=== PATIENT | female | born 1980 | race Caucasian/White ===

== ENCOUNTER 2023-04-03 11:06 | Outpatient (RCR) | payer BC, SELFPAY | END 2023-08-01 23:59 | disposition home or self-care (01) | PROVIDERS: PCP Physician Assistant Medical; Visit Provider Physician Assistant Medical | DX: M62.89 Other specified disorders of muscle (principal); R52 Pain, unspecified; L90.5 Scar conditions and fibrosis of skin; R27.8 Other lack of coordination; Z51.89 Encounter for other specified aftercare | CPT/HCPCS: 97162; 97535 ==

== ENCOUNTER 2023-09-30 23:57 | Emergency (ER) | payer BC, SELFPAY ==
[2023-10-01 00:09] VITALS: BP 126/57; PULSE 75; RESP 20; TEMP 36.1; O2SAT 100; BMI 24.4
--- NOTE | 2023-10-01 00:26 | CRLHL7_ITS ---
For Patients: As a result of the Century Cures Act, medical imaging exams and procedure reports are released immediately into your electronic medical record. You may view this report before your referring provider. If you have questions, please contact your health care provider. INDICATION: Upper abdominal pain, history of cervical cancer. TECHNIQUE: CT abdomen and pelvis acquired with 81 cc Isovue 370 IV contrast. COMPARISON: None. FINDINGS: Lower chest: Scattered atelectasis. Liver: Unremarkable. Normal in size and attenuation. No suspicious masses. Gallbladder and bile ducts: Unremarkable. No stones or inflammation. No biliary dilatation. Pancreas: Unremarkable. No mass or inflammation. Spleen: Unremarkable. Normal in size. No masses. Adrenal glands: Unremarkable. No nodules. Kidneys: Unremarkable. No suspicious masses, stones, or hydronephrosis. GI tract: Moderate colonic stool burden. Normal in caliber. No sign of mass or inflammation. Normal appendix. Vasculature: Abdominal aorta is normal in caliber. Mesenteric arteries are patent. Lymph nodes: No lymphadenopathy. Peritoneum/Abdominal Wall: Tiny fat containing umbilical hernia. No sign of mass or infiltration. No free air or significant free fluid. Pelvis: Unremarkable. Bones: Unremarkable for age. IMPRESSION: No acute intra-abdominal/pelvic abnormality. Moderate colonic stool burden. Please note that all CT scans at this facility use dose modulation, iterative reconstruction, and/or weight-based dosing when appropriate to reduce radiation dose to as low as reasonably achievable. Dictated by Oscar Salazar MD @ 10/01/2023 1:15:32 AM (Electronically Signed)
[2023-10-01 00:38] LABS: Basophils Absolute Auto 0.03 K/uL (0.00-0.30); Basophils Percent Auto 0.5 % (0.0-3.0); Eosinophils Absolute Auto 0.46 K/uL (0.00-0.50); Hematocrit 39.3 % (33.0-51.0); Hemoglobin* 12.8 gm/dL (12.0-16.0); Lymphocytes Absolute Auto 1.83 K/uL (0.90-2.90); Lymphocytes Percent Auto 27.9 % (20-44); Mean Corpuscular HGB Conc 33 gm/dL (32-36); Mean Corpuscular Hemoglobin 29 pg (26-34); Mean Corpuscular Volume 89 fL (80-100); Monocytes Percent Auto 6.1 % (0.0-11.0); Neutrophils Absolute Auto 3.83 K/uL (1.7-7.0); Neutrophils Percent Auto 58.5 % (42.0-72.0); Platelet Count* 227 K/uL (140-440); RDW Coefficient of Variation % 12.8 % (11.5-15.5); Red Blood Count 4.41 m/uL (4.00-5.20); Slide Review Reflex No; White Blood Count* 6.55 K/uL (4.50-11.00)
[2023-10-01] MEDS: PANTOPRAZOLE SODIUM 40 MG INJ IVP (00:39)
[2023-10-01] MEDS: ONDANSETRON 2 MG/ML inj 4 MG IVP (00:39)
[2023-10-01] MEDS: 0.9 % SODIUM CHLORIDE 1000 ml 1,000 ML IV (00:39)
[2023-10-01] MEDS: KETOROLAC 15 MG/ML inj IVP (00:39)
--- NOTE | 2023-10-01 00:40 | ED_ITS ---
HPI - General Adult General Chief complaint: Abdominal Pain Stated complaint: upper abdomen/chest pain Time Seen by Provider: 10/01/23 00:01 Source: patient Mode of arrival: ambulatory Limitations: no limitations History of Present Illness HPI narrative: 43-year-old female with prior history of cervical cancer status post chemotherapy and radiation but no prior pelvic surgeries presents to the emergency department for evaluation of nausea combine with epigastric pain that radiates under both ribs for the past 2 hours. Tried Tums at home with no relief. No prior history of similar symptoms. Nauseated but no vomiting. Denies fever. Unknown last bowel movement but does not believe it was in the last 24 hours. No unusual features like diarrhea or bloody stools. History of cervical cancer 3 years ago per her report. Denies any signs of recurrence. It does sound like she still has her uterus. She claims that she has not had any surgical procedures on the cervix like a LEEP or a cone biopsy, reports that she had chemotherapy and radiation and has no signs of recurrence. Remains on hormone replacement therapy. Pain is constant, came on rather suddenly. No history of pancreatitis or prior gallbladder disease. Pain does radiate up chest slightly. Past medical history notable for ADHD and depression. Home meds are estrogen and progesterone, an antidepressant and a stimulant for ADHD. She is unable to recall the a list of these but we are able to find some records stating that she takes Effexor, trazodone, Estrace, progesterone and Adderall. Reports that she is a nonsmoker. ROS notable for the abdominal symptoms as above only, otherwise denies times 12 systems. Related Data Allergies Allergy/AdvReac Type Severity Reaction Status Date / Time No Known Drug Allergies Allergy Verified 10/01/23 00:09 Exam Const: Vital Signs, click to edit/add: Vital Signs - 24 hr 10/01/23 00:09 Temperature 97.0 F L Pulse Rate [Left P ulse Oximeter] 75 Respiratory Rate 20 Blood Pressure [Ri ght Upper Arm] 126/57 L Pulse Oximetry 100 Oxygen Delivery Me thod Room Air Documenting provider has reviewed patient's vital signs: yes Common normals: no apparent distress and alert General appearance: cooperative and well kempt Orientation/consciousness: Yes awake HENMT: Common normals: normocephalic Head and scalp: normocephalic Face and sinus: normal facial exam Mouth: oral and palatal mucosa normal Throat: posterior oropharynx normal Eye: Common normals: conjunctivae normal General eye: normal appearance of both eyes Conjunctiva: conjunctiva(e) normal Neck & C-Spine: Common normals: full ROM and no lymphadenopathy Resp: Common normals: normal respiratory effort, no use of accessory muscles and clear to auscultation bilaterally Effort & inspection: able to speak in complete sentences Auscultation: clear to auscultation bilaterally Cardio: Common normals: regular rate, regular rhythm, S1 normal heart sound, S2 normal heart sound and no murmurs Rate: regular rate Rhythm: regular rhythm Heart sounds: S1 normal and S2 normal GI: Common normals: Normal to inspection, nondistended, normoactive bowel sounds present, soft to palpation, no hepatosplenomegaly and no masses Palpation: soft and no hepatosplenomegaly Other: Tender to palpation of entire upper abdomen but it does really concentrate in the right upper quadrant. No rebound tenderness, mild amount of guarding. No mass. : Common normals: no CVA tenderness Bladder/kidney exam: no CVA tenderness Back & Pelvis: Common normals: no CVA tenderness Thoracic spine/upper back: normal to inspection Lumbar spine/lower back: normal to inspection Extremity: Common normals: normal to inspection and no pedal edema Neuro: Sensorium/orientation: awake and alert Speech: speech normal Motor exam: no movement abnormalities noted Psych: Appearance: well kempt Attitude: engaged Activity/motor behavior: appropriate eye contact Insight: insight good Judgement: judgment good Skin: Common normals: no rashes or lesions noted General skin exam: no rashes or lesions noted Course Course ED Course: Epigastric and right upper quadrant pain with history of abdominal radiation but no prior surgeries. Still risk for obstruction. Concern for gastritis, pancreatitis, biliary dyskinesia, gallstones, cholecystitis, obstruction, among others. Low risk for cardiac disease but will obtain EKG any way. Start with 4 mg of Zofran, Toradol, IV fluids and Protonix. CT scan as ultrasound is not readily available overnight. Patient adamantly declines test. Risks and benefits were discussed with her. She verbalizes understanding and agreement would like to proceed with CT scan without urine test. Does seem to have appropriate understanding of risks and benefits, extremely likely to be infertile due to her radiation. No menses for over 4 years. Reevaluation(s) Reevaluation #1: Documentation on Clarissa Bird, [facility] down time.? Patient was initially given Zofran, Toradol and Protonix.? CT scan of the abdomen and pelvis was performed.? Than kfully this shows no acute intra-abdominal or pelvic abnormality but does show a moderate colonic stool burden.? Specifically there are no signs of gallstones, inflammation, no biliary dilation.? This combined with the fact that her labs also looked great makes me think that we can avoid calling in ultrasound in the middle of the night.? Her white count is normal at 6.55 with normal hemoglobin of 12.8 and platelets of 227.? There is no significant left shift to her labs.? Her inflammatory markers are also normal.? CRP is 0.9, lipase normal at 257.? AST normal at 36 with a total bili of only 0.3 showing no signs of obstruction or inflammation.? Glucose is 120 which is not unusual since she just ate and electrolytes showed only a mildly low potassium at 3.1, does not warrant additional replacement.? Patient is counseled on all of these findings.? She is feeling a little bit better after medications, still has some pain but nausea is improving.? I did elect to do an EKG because she was complaining that the pain radiated into the chest a little bit.? There are no signs of any ischemia with this.? Her heart rate is 64, normal sinus rhythm there is a normal axis and intervals.? No significant ST or T-wave abnormalities.? I discussed the findings with patient.? Please see the discharge instructions as well which will be copied and pasted separately.? Will likely this is either gastroenteritis or biliary dyskinesia.? I do not think that we need to back in to ultrasound at this time since CT is reassuring.? I recommend symptom control with Zofran, will be given some Percocet to take at home.? She did drive herself here and ideally would like to be able to drive herself home.? I have encouraged her to try taking 1 of the Percocets when she gets home and trying to rest.? If her sy mptoms are markedly better in 8 hours, most likely this was from biliary dyskinesia and symptoms should be monitored.? Discussed returning to the ED if symptoms are not doing better by Monday for ultrasound and additional testing.? If her symptoms do resolve but she continues to have spells, she should have a HIDA scan to confirm that this is related to biliary dyskinesia and a surgical consult.? Alarm symptoms were reviewed and provided in writing as well.? Okay to try [id number] antacids and other symptom controlling medications in addition to the Zofran and Reader given a discharge.? All questions answered. Vital Signs Vital signs: Initial Vital Signs Temperature 97.0 F L 10/01/23 00:09 Temperature Source Temporal Artery Scan 10/01/23 00:09 Pulse Rate 75 10/01/23 00:09 Pulse Rhythm Regular 10/01/23 00:09 Respiratory Rate 20 10/01/23 00:09 Blood Pressure 126/57 L 10/01/23 00:09 Blood Pressure Mean 80 10/01/23 00:09 Blood Pressure Position Sitting 10/01/23 00:09 Pulse Oximetry 100 10/01/23 00:09 Oxygen Delivery Method Room Air 10/01/23 00:09 Vital Signs Temperature 97.0 F L 10/01/23 00:09 Pulse Rate 75 10/01/23 00:09 Respiratory Rate 20 10/01/23 00:09 Blood Pressure 126/57 L 10/01/23 00:09 Pulse Oximetry 100 10/01/23 00:09 Oxygen Delivery Method Room Air 10/01/23 00:09 Temperature 97.0 F L 10/01/23 00:09 Pulse Rate 75 10/01/23 00:09 Respiratory Rate 20 10/01/23 00:09 Blood Pressure 126/57 L 10/01/23 00:09 Pulse Oximetry 100 10/01/23 00:09 Oxygen Delivery Method Room Air 10/01/23 00:09 Medications Administered Medications: Discontinued Medications Generic Name Dose Route Start Last Admin Trade Name Freq PRN Reason Stop Dose Admin Sodium Chloride 1,000 mls @ 1,000 mls/hr 10/01/23 00:29 10/01/23 00:39 0.9 % Sodium Chloride 1000 Ml IV 10/01/23 01:28 1,000 mls/hr .Q1H NIKKI Administration Ketorolac Tromethamine 15 mg 10/01/23 00:26 10/01/23 00:39 Ketorolac 15 Mg/Ml Inj IVP 10/01/23 00:27 15 mg ONCE ONE Administration Ondansetron HCl 4 mg 10/01/23 00:26 10/01/23 00:39 Ondansetron 2 Mg/Ml Inj IVP 10/01/23 00:27 4 mg ONCE ONE Administration Pantoprazole Sodium 40 mg 10/01/23 00:26 10/01/23 00:39 Pantoprazole Sodium 40 Mg Inj IVP 10/01/23 00:27 40 mg ONCE ONE Administration Medical Decision Making Lab Data Lab results reviewed: Yes I reviewed the patient's lab results Lab results narrative: All very reassuring. No significant leukocytosis, no elevation of CRP, pancreatitis, elevated liver enzymes or other abnormality. CT scan also reassuring. Labs: Lab Results 10/01/23 Range/Units 00:20 WBC 6.55 (4.50-11.00) K/uL RBC 4.41 (4.00-5.20) m/uL Hgb 12.8 (12.0-16.0) gm/dL Hct 39.3 (33.0-51.0) % MCV 89 (80-100) fL MCH 29 (26-34) pg MCHC 33 (32-36) gm/dL RDW Coeff of Rito 12.8 (11.5-15.5) % Plt Count 227 (140-440) K/uL Neut % (Auto) 58.5 (42.0-72.0) % Lymph % (Auto) 27.9 (20-44) % Cass % (Auto) 6.1 (0.0-11.0) % Eos % (Auto) 7.0 (0.0-7.0) % Baso % (Auto) 0.5 (0.0-3.0) % Neut # (Auto) 3.83 (1.7-7.0) K/uL Lymph # (Auto) 1.83 (0.90-2.90) K/uL Cass # (Auto) 0.40 (0.00-0.90) K/UL Eos # (Auto) 0.46 (0.00-0.50) K/uL Baso # (Auto) 0.03 (0.00-0.30) K/uL Abs Immat Gran (auto) 0.00 (0.00-0.30) K/uL Imm/Tot Granulo (auto) 0.0 % Sodium 135 (135-149) mmol/L Potassium 3.1 L (3.6-5.1) mmol/L Chloride 103 (96-114) mmol/L Carbon Dioxide 25 (20-32) mmol/L Anion Gap 7 (7-15) mEq/L BUN 16 (5-24) mg/dL Creatinine 1.0 (0.5-1.5) mg/dL Estimated Creat Clear 77.37 Estimated GFR 73 ml/min Glucose 121 H (60-115) mg/dL Calcium 9.4 (8.4-10.6) mg/dL Total Bilirubin 0.3 (0.1-1.5) mg/dL AST 36 H (12-35) U/L ALT 45 H (4-35) U/L Alkaline Phosphatase 99 (40-150) U/L C-Reactive Protein 0.9 (0.5-1.0) mg/dL Total Protein 7.9 (6.0-8.3) g/dL Albumin 4.8 (3.3-5.0) g/dL Lipase 257 (23-300) U/L Imaging Data CT scan - abdomen: Attestation: I have reviewed the pertinent imaging results. My impression: Retained stool but otherwise normal. Radiologist's impression: See down time description. Discharge Plan Discharge Clinical Impression: Acute epigastric pain Patient Disposition: Home, Self-Care Condition: Stable Additional Instructions: Discharge instructions for Clarissa Bird 10/01/23 I do apologize for the unprofessional looking discharge instructions, as we discussed, the computers systems go down once monthly for updates.? I still find importance in everyone having written discharge instructions as a reminder of the things that we discussed. As we discussed, your CT scan does show some constipation but no signs of infection, obstruction, significant gallbladder infection, pancreatitis, or complications from her prior radiation.? This is great news.? Your labs also looked great.? There are no signs of significant inflammation, infection or other abnormality.? Your gallbladder and liver labs look great. Remember that 1 of 3 problems can happen in the gallbladder.? The 1st is infection or obstruction from a gallstone.? These are emergent and require surgical intervention.? The 3rd cause is something called biliary dyskinesia.? This is a condition that is often hormone related where the gallbladder will malfunction, causing pain but no real danger.? For most, these spells will last about 8 hours.? They are not dangerous but if they become disruptive in your life, the treatment is removal of the gallbladder.? We would not see evidence of this condition on CT scan or ultrasound.? If your symptoms are from biliary dyskinesia, you should feel markedly better by midmorning.? It is important to eat a soft, bland low-fat diet to help reduce symptoms.? I do not recommend alcohol for the next 3 days. More likely, your symptoms are from gastroenteritis, or the stomach flu.? The particular strain that we are seeing commonly is causing symptoms that are very similar to yours.? Your given antacid and anti-inflammatory medicine as well as an anti nausea medicine here in the ED. if your symptoms are related to the stomach flu, things should improve in 3-4 days but for most are much better in 48 hours.? I have given you anti nausea medicine, Zofran also known as ondansetron.? You may use this up to every 6 hours for nausea and vomiting.? I have also given you a small supply of pain medication, Reader.? This is a narcotic medication.? You may use 1-2 tablets every 6 hours.? I have only given you for tablets.? It is okay to use Tylenol and/or ibuprofen as well.? You may also try antacids like Tums or Maalox. As we discussed, if your symptoms are not improving at all in 48 hours or if you start to have a high fever or significant weakness, you should come back to the emergency department.? We would want to do an ultrasound of the gallbladder area and additional testing.? Since everything looks so good with the initial testing, I would recommend we wait and see how things go.? Drink lots of fluids and slowly advanced your diet. If you continue to have spells similar to this and we determined that they are more like the biliary dyskinesia spells that tend to last about 8 hours and then your completely symptom free in between spells, a HIDA scan should be ordered by your primary care doctor.? This is the best test to look for biliary dyskinesia. Activity Level: Activity as Tolerated Follow Up/Referrals: Chloe Kidd PA-C [Primary Care Provider] -
--- NOTE | 2023-10-01 00:41 | ED.NURSE ---
pt states she does not want a urine test done.
[2023-10-01 00:50] LABS: Albumin* 4.8 g/dL (3.3-5.0); Chloride* 103 mmol/L (96-114)
[2023-10-01 00:51] LABS: Potassium* 3.1 mmol/L (3.6-5.1); Sodium* 135 mmol/L (135-149)
--- OUTSIDE RECORDS SUMMARY | 2023-10-01 00:52 | XMS_ITS | Clinical Summary ---
Author Name Unknown Organization [facility] Address [place], [place] [address] Care Team Providers Care Project Management Name Role Phone Chloe Kidd Primary Care Provider Allergies No known active allergies Medications Medication Sig Dispensed Refills Start Date End Date Status progesterone micronized (PROMETRIUM) 200 mg capsule Take 200 mg by mouth. 0 07/31/2020 Active estradioL (ESTRACE) 2 mg tablet Take 2 mg by mouth. 0 07/31/2020 Active traZODone (DESYREL) 50 mg tabletIndications:I nsomnia, idiopathic Take 1 Tablet (50 mg) by mouth at bedtime. 90 Tablet 3 12/12/2022 Active venlafaxine (EFFEXOR XR) 150 mg Extended-Release capsuleIndications: Depression, major, single episode, moderate (HC) Take 1 Capsule (150 mg) by mouth once daily with evening meal. 90 Capsule 1 04/27/2023 Active dextroamphetamine-a mphetamine (Adderall XR) 25 mg Extended-Release capsuleIndications: Attention deficit hyperactivity disorder (ADHD), combined type Take 1 Capsule (25 mg) by mouth once daily. 30 Capsule 0 07/03/2023 Active dextroamphetamine-a mphetamine (Adderall XR) 30 mg Extended-Release capsuleIndications: Attention deficit hyperactivity disorder (ADHD), combined type Take 1 Capsule (30 mg) by mouth once daily. 30 Capsule 0 09/27/2023 Active dextroamphetamine-a mphetamine (Adderall XR) 30 mg Extended-Release capsuleIndications: Attention deficit hyperactivity disorder (ADHD), combined type Take 1 Capsule (30 mg) by mouth once daily. 30 Capsule 0 08/02/2023 4 dextroamphetamine-a mphetamine (Adderall XR) 30 mg Extended-Release capsuleIndications: Attention deficit hyperactivity disorder (ADHD), combined type Take 1 Capsule (30 mg) by mouth once daily. 30 Capsule 0 09/01/2023 4 Discontinued (Reorder (E-cancel not sent)) dextroamphetamine-a mphetamine (Adderall XR) 30 mg Extended-Release capsuleIndications: Attention deficit hyperactivity disorder (ADHD), combined type Take 1 Capsule (30 mg) by mouth once daily. 30 Capsule 0 10/01/2023 4 Discontinued (*Availabili ty/Formulary change/Cost of medication) Active Problems Problem Noted Date Diagnosed Date Family history of colonic polyps 02/25/2022 Overview: Colonoscopy 02/2022 normal, repeat in 5 years Carcinoma of uterine cervix, invasive 10/26/2020 Overview: 07/2019 AGC-EC, FAVOR NEOPLASIA, ASC-H/HPV+. 08/2019 [place]: Fragments of invasive carcinoma of the cervix; followed by [facility]--> did chemo and radiation, in remission! 11/2021 NIL/HPV negative 11/2022 NIL/HPV negative Provider plan: Pap smear and HPV yearly Resolved Problems Problem Noted Date Diagnosed Date Resolved Date Atypical glandular cells on cervical Pap smear 07/31/2019 08/19/2019 Overview: 07/2019 [facility]- Atypical endocervical cells,favor neoplastic/ASC-H/HPV+ Plan Rh negative state in antepartum period 12/28/2011 04/25/2012 Supervision of normal first 08/30/2011 04/25/2012 Overview: G1/0 Works fulltime in [place] - 2 years Plans delivery at [facility] Passed renal stones at 29 weeks. Mild thrombocytopenia - needs recheck at 39 weeks and in labor. Immunizations Name Administration Dates Next Due HPV 9 (Gardasil 9) 12/03/2021 Influenza Virus, Unspecified 04/16/2018 Influenza, IIV3 (Age >=3 years) 06/13/2013 Influenza, IIV4 06/03/2019,04/16/2018,06/29/2016 ,06/11/2015 Influenza, Whole Virus 09/09/2017 Td (Age >=7 Years) 06/21/2005 Tdap 02/19/2015,01/25/2012 Family History Medical History Relation Name Comments Hypertension Father Stroke Father Other Maternal Grandfather Alzheim er's Good Health Mother Diabetes Paternal Grandfather Arthritis Paternal Grandmother Allergies Sister Colon polyps Sister 4 polpys remove d, 2 were very large Relation Name Status Comments Brother 1 Alive Brother 2 Alive Brother 3 Stillborn twin Brother 4 Stillborn twin Father Alive Maternal Grandfather Alive Maternal Grandmother Alive Mother Alive Paternal Grandfather Paternal Grandmother Alive Sister Alive Social History Tobacco Use Types Packs/Day Years Used Date Smoking Tobacco: Never Smokeless Tobacco: Never Tobacco Cessation:Counseling Given: Yes Alcohol Use Standard Drinks/Week Comments Yes 0 (1 standard drink = 0.6 oz pur e alcohol) 2 drinks per month PHQ-2 Answer Date Recorded PHQ-2 TOTAL SCORE 2 12/12/2022 Social Connections Answer Date Recorded Frequency of Communication with Friends and Fami ly 0 02/27/2023 Financial Resource Strain Answer Date R ecorded Difficulty of Paying Living Expenses 3 02/27/2023 Difficulty of Paying Living Expenses Not on file 02/27/2023 Food Insecurity Answer Date Recorded Worried About Running Out of Food in the Last Ye ar 1 02/27/2023 Transportation Needs Answer Date Record ed Lack of Transportation (Medical) 1 02/27/2023 Housing Stability Answer Date Recorded Unable to Pay for Housing in the Last Year 1 02/27/2023 Sex and Gender Information Value Date Recorded Sex Assigned at Not on file Gender Identity Not on file Sexual Orientation Not on file Obstetrics History Para Term AB IAB SAB Ectopic Multiple Livin g Live Births 3 2 2 0 1 0 1 0 0 2 Date Outcome GA Total Labor Labor/2nd/3rd Weight Sex Delivery Anes PTL Naheed A1 A5 Name Cl in Term 03/22 Term 39w 3d 3.69 kg (8 lb 2 oz) M Vag-Vacuu m Epidu ral 9 9 Luke Delivery Location:[facility] 02/27 SAB 6w0 d Last Filed Vital Signs Vital Sign Reading Time Taken Comments Blood Pressure 108/75 02/27/2023 8:31 AM CDT Pulse 80 02/27/2023 8:31 AM CDT Temperature 37.1 ??C (98.7 ??F) 11/02/2021 11:35 AM C DT Respiratory Rate 14 07/20/2016 11:00 AM MANAGER ENT Oxygen Saturation 96% 12/12/2022 1:04 PM CDT Inhaled Oxygen Concentration - - Weight 82.6 kg (182 lb) 02/27/2023 8:31 AM CDT Height 173 cm (5' 8.11) 12/12/2022 1:04 PM CDT Body Mass Index 27.58 12/12/2022 1:04 PM CDT Plan of Treatment Health Maintenance Due Date Last Done Comments Hepatitis C screening for age 18-79 02/10/2000 COVID-19 vaccine series ( season) 2023 06/13/2022, 07/21/2021, 11/19/2020, Additional history exists Influenza for age 9-49 04/21/2023 9, 04/16/2018, 04/16/2018, Additional history exists BMI (ht and wt on same day) for age 18+ 12/13/2023 12/12/2022, 12/03/2021, 10/26/2020, Additional history exists Depression screening for age 12+ 12/13/2023 12/12/2022, 10/26/2020, 08/02/2019, Additional history exists Pap test for age 21-65 12/13/2023 , 12/12/2022, 12/03/2021, Additional history exists Tetanus booster 02/19/2025 02/19/2015, 0601/2012, 06/21/2005 Colonoscopy through age 75 02/25/202702/25, 02/25/2022, 02/25/2022 HIV for age 15-65 Completed 07/20/2011 Tdap Completed 02/19/2015, 01/25/2012 Pneumococcal series for age 6-64 Aged Out No longer eligible based on patient's age to complete this topic Care Teams Project Management Relationship Specialty Start Date End Date Chloe Kidd PA [address] [place] [address] PCP - General Physician Due Diligence Coordinator 05/18/18
[2023-10-01 00:53] LABS: Bilirubin Total* 0.3 mg/dL (0.1-1.5); Est. Creatinine Clearance* 77.37; Estimated Glomerular Filt Rate 73 ml/min
[2023-10-01 00:54] LABS: Alanine Aminotransferase* 45 U/L (4-35); Alkaline Phosphatase* 99 U/L (40-150); Anion Gap 7 mEq/L (7-15); Aspartate Amino Transferase* 36 U/L (12-35); Blood Urea Nitrogen* 16 mg/dL (5-24); Calcium* 9.4 mg/dL (8.4-10.6); Carbon Dioxide* 25 mmol/L (20-32); Glucose* 121 mg/dL (60-115); Lipase* 257 U/L (23-300); Total Protein* 7.9 g/dL (6.0-8.3)
[2023-10-01 00:56] LABS: C Reactive Protein* 0.9 mg/dL (0.5-1.0)
== END 2023-10-01 01:55 | disposition home or self-care (01) ==
LOC: ED 10-01 00:51
PROVIDERS: Emergency Provider Family Medicine; PCP Physician Assistant Medical
DX: R10.13 Epigastric pain (principal)
CPT/HCPCS: 36415; 74177; 80053; 81003; 81025; 83690; 85025; 86140; 93005; 96374; 96375; 99284; 99285; C9113; J1885; J2405; J7030; Q9967

== ENCOUNTER 2025-04-02 15:00 | Outpatient (RCR) | payer BC, SELFPAY | END 2025-07-31 23:59 | disposition home or self-care (01) | PROVIDERS: PCP Physician Assistant Medical; Visit Provider Physician Assistant Medical | DX: M62.89 Other specified disorders of muscle (principal); L90.5 Scar conditions and fibrosis of skin; Z51.89 Encounter for other specified aftercare | CPT/HCPCS: 97110; 97140; 97162; 97535 ==